=== PATIENT | female | born 1960 | race Caucasian/White ===

== ENCOUNTER 2021-05-23 12:39 | Emergency (ER) | payer BC ==
[2021-05-23] MEDS ORDERED: TAMIFLU75 MG PO (15:02)
== END 2021-05-23 16:45 | disposition home or self-care (01) ==
LOC: ER1 12:39
DX: U07.1 COVID-19 (principal); J10.1 Influenza due to other identified influenza virus with other respiratory manifestations; Z23 Encounter for immunization; I10 Essential (primary) hypertension
CPT/HCPCS: 99283; M0245